=== PATIENT | female | born 1970 | race Caucasian/White ===

== ENCOUNTER 2018-04-16 13:19 | Emergency (ER) | payer OTHER ==
[2018-04-16 13:44] VITALS: BP 112/68; PULSE 102; TEMP 97.8; BMI 40.8
--- NOTE | 2018-04-16 13:48 | PDOC ---
Rapid Medical Evaluation Chief Complaint: Pain Medical Evaluation: Allergies Allergy/AdvReac Type Severity Reaction Status Date / Time No Known Allergies Allergy Verified 04/16/18 13:42 Vital Signs Temp Pulse Resp BP Pulse Ox 97.8 F 102 H 17 112/68 97 04/16/18 13:42 04/16/18 13:42 04/16/18 13:42 04/16/18 13:42 04/16/18 13:42 04/16/18 13:45 I have performed a brief in-person evaluation of this patient. The patient presents with a chief complaint of: right ankle pain and swelling since last night w/o injury or trauma after sleeping over visiting mother in the ED previous night Pertinent physical exam findings: mild swelling to top and lateral aspect of right knee I have ordered the following: Rt knee x-ray The patient will proceed to the ED for further evaluation. Discharge Disposition - Diagnosis Right knee pain Qualifiers: Chronicity: acute Qualified Code(s): M25.561 - Pain in right knee - Discharge Dispostion Condition at time of disposition: Stable - Referrals - Patient Instructions - Post Discharge Activity
--- NOTE | 2018-04-16 14:49 | PDOC ---
History of Present Illness - General Chief Complaint: Pain Stated Complaint: RT ANKLE PAIN/SWOLLEN Time Seen by Provider: 04/16/18 14:19 History Source: Patient Exam Limitations: No Limitations - History of Present Illness Initial Comments: 04/16/18 14:44 CHIEF COMPLAINT: Ankle pain HISTORY OF PRESENT ILLNESS: This is an otherwise healthy 47-year-old female presents for evaluation of right ankle pain and swelling. The patient spent the night in the ER with her mother reports sleeping in a plastic chair. This morning she noticed some swelling, pain, and difficulty bearing weight on the right. She has no other symptoms. Vital signs on arrival are notable for pulse of 102. REVIEW OF SYSTEMS: GENERAL/CONSTITUTIONAL: No fever or chills. No weakness. No weight change. HEAD, EYES, EARS, NOSE AND THROAT: No change in vision. No ear pain or discharge. No sore throat. CARDIOVASCULAR: No chest pain or palpitations. RESPIRATORY: No cough, wheezing, or shortness of breath. GASTROINTESTINAL: No nausea, vomiting, diarrhea or constipation. GENITOURINARY: No dysuria, frequency, or change in urination. MUSCULOSKELETAL: See HPI. SKIN: No rash or easy bruising. NEUROLOGIC: No headache, vertigo, loss of consciousness, or loss of sensation. ALLERGIC/IMMUNOLOGIC: No hives or skin allergy. No latex allergy. PHYSICAL EXAM: GENERAL: The patient is awake, alert, and fully oriented, in no acute distress. ENT: Pupils equal, round and reactive to light, extraocular movements intact, sclera anicteric, conjunctiva clear. Neck supple. LUNGS: Clear to auscultation bilaterally. Normal excursion. No respiratory distress or use of accessory muscles. CV: RRR, S1/S2, no MRG. Cap refill < 2 sec. ABDOMEN: Soft, non-distended, non-tender. EXTREMITIES: Mild edema to right ankle, tenderness at distal tibia. Normal ROM, partial weight-bearing only. SEnsation intact. NEUROLOGICAL: Normal speech. CN II-XII grossly intact. PSYCH: Normal mood, normal affect. SKIN: Warm, dry, normal turgor, no rashes or lesions noted. Past History - Past Medical History Allergies/Adverse Reactions: Allergies Allergy/AdvReac Type Severity Reaction Status Date / Time No Known Allergies Allergy Verified 04/16/18 13:42 COPD: No - Immunization History Immunization Up to Date: Yes - Suicide/Smoking/Psychosocial Hx Smoking History: Never smoked Drug/Substance Use Hx: Yes (MARIJUANA) *Physical Exam - Vital Signs Last Vital Signs Temp Pulse Resp BP Pulse Ox 97.8 F 102 H 17 112/68 97 04/16/18 13:42 04/16/18 13:42 04/16/18 13:42 04/16/18 13:42 04/16/18 13:42 Moderate Sedation - Procedure Monitoring Vital Signs: Procedure Monitoring Vital Signs Temperature 97.8 F 04/16/18 13:42 Pulse Rate 102 H 04/16/18 13:42 Respiratory Rate 17 04/16/18 13:42 Blood Pressure 112/68 04/16/18 13:42 O2 Sat by Pulse Oximetry (%) 97 04/16/18 13:42 Medical Decision Making - Medical Decision Making 04/16/18 14:46 A/P: 47-year-old female with ankle pain and swelling, unclear mechanism. 1. Ibuprofen 600mg PO for pain and selling 2. X-ray reviewed: No fractures or dislocations 3. Ramirez dressing and crutches 4. Orthopedic follow-up as needed *DC/Admit/Observation/Transfer Diagnosis at time of Disposition: Ankle pain, right Qualifiers: Chronicity: acute Qualified Code(s): M25.571 - Pain in right ankle and joints of right foot - Discharge Dispostion Disposition: HOME Condition at time of disposition: Stable Decision to Admit order: No - Referrals Referrals: Deb Hernández MD [Primary Care Provider] - Deacon Cadena DO [Staff Physician] - 14 days (Orthopedics if symptoms persist) - Patient Instructions Printed Discharge Instructions: DI for Ankle Sprain Additional Instructions: -Take ibuprofen 2-3 tablets every 6 hours with food as needed for pain -Rest and use crutches to minimize weightbearing -Apply ice for 15 minutes at a time 5 times daily -Compressed using the wraps provided -Follow-up with orthopedics (referral enclosed) if symptoms not improving within 2-3 weeks -Return for any new or concerning symptoms - Post Discharge Activity Forms/Work/School Notes: Back to Work
[2018-04-16] MEDS ORDERED: IBUPROFEN 600 MG TABLET (FP) PO ONE ×2 (15:03→15:05)
== END 2018-04-16 15:07 | disposition home or self-care (01) ==
LOC: JERFT 13:19
PROC: 2W3QX1Z Immobilization of Right Lower Leg using Splint (ICD-10-PCS; principal; 2018-04-16)
DX: M25.571 Pain in right ankle and joints of right foot (principal)
CPT/HCPCS: 73610-TC-RT-FY; 73630-TC-RT-FY; 99281-25